=== PATIENT | male | born 1970 | race Caucasian/White ===

== ENCOUNTER 2021-09-08 10:31 | Emergency (ER) | payer BC, SELFPAY ==
[2021-09-08 11:36] VITALS: BP 116/80; PULSE 85; RESP 19; TEMP 36.6; O2SAT 98; BMI 25.8
[2021-09-08 12:30] LABS: Basophils Percent Auto 0.3 % (0-2); Eosinophils Absolute Auto 0.1 X10*3/uL (0.0-0.4); Eosinophils Percent Auto 1.4 % (0-4); Hematocrit 43.8 % (42.0-52.0); Hemoglobin 14.8 g/dl (14.0-18.0); Imm Gran Abs Auto 0.02 X10*3/uL (0.00-0.03); Imm Gran Pct Auto 0.3 % (0.0-0.4); Lymphocytes Absolute Auto 2.5 X10*3/uL (1.2-4.9); Lymphocytes Percent Auto 31.9 % (20-40); MANUAL DIFF FLAG NO; Mean Corpuscular HGB Conc 33.8 g/dl (31.0-36.0); Mean Corpuscular Hemoglobin 29.4 pg (27.0-33.0); Mean Corpuscular Volume 86.9 fL (80.0-98.0); Mean Platelet Volume 10.5 fL (9.4-12.4); Monocytes Absolute Auto 0.6 X10*3/uL (0.1-1.2); Monocytes Percent Auto 7.6 % (2-11); Neutrophils Absolute Auto 4.6 x10*3/uL (2.0-8.3); Neutrophils Percent Auto 58.5 % (45-73); Platelet Count 219 X10*3/uL (160-400); Red Blood Count 5.04 X10*6/uL (4.60-5.80); Red Cell Distribution Width 12.2 % (11.0-16.0); White Blood Count 7.8 X10*3/uL (4.8-10.8)
[2021-09-08 12:31] LABS: Appearance Urine CLEAR; Color Urine YELLOW; Glucose Urine UA NEG (NEG); Leukocyte Esterase Urine NEG (NEG); Nitrite Urine NEG (NEG); Specific Gravity - Urine 1.025 (1.005-1.025); UACC Culture Trigger NO; Urine Blood 1+ (NEG); Urine Ketones NEG (NEG); Urine Protein NEG (NEG-TRACE)
[2021-09-08 12:47] LABS: Anion Gap 14 (12-20); Blood Urea Nitrogen 11 mg/dL (9-16); Calcium 9.9 mg/dL (8.4-10.2); Carbon Dioxide 29 mmol/L (22-29); Chloride 103 mmol/L (96-108); Creatinine Clr Calc Pharmacy 90.4; Estimated Glomerular Filt Rate > 60; Glucose Random 101 mg/dL (60-115); Potassium 4.7 mmol/L (3.3-5.1); Sodium 141 mmol/L (135-145)
[2021-09-08 12:52] LABS: WBC Urine 0 /HPF (0-4)
[2021-09-08 12:53] LABS: Mucus Urine 2+ /LPF
== END 2021-09-08 21:02 | disposition left against medical advice (07) ==
LOC: HO.ED 20:43
PROVIDERS: Emergency Provider Emergency Medicine; PCP Internal Medicine
DX: R10.9 Unspecified abdominal pain (principal)
CPT/HCPCS: 36415; 80048; 81001; 85025; 99283

== ENCOUNTER 2021-09-16 14:34 | Day surgery (SDC) | payer OTHER, SELFPAY ==
--- NOTE | ~2021-09-16 | CT_ITS ---
EXAMINATION: CT ABDOMEN AND PELVIS WITH CONTRAST CLINICAL INFORMATION: Right inguinal, quadrant pain COMPARISON: None TECHNIQUE: Multidetector volumetric images were obtained from the superior aspect of the liver through the pubic symphysis following administration 85 mL of Omnipaque 350 intravenous contrast. Sagittal and coronal reformatted images were obtained on the technologist's workstation. Oral contrast: No This CT examination was performed using dose optimization techniques as appropriate, variously including the following: *Automated exposure control *Adjustment of mA and/or kV according to patient size (this includes techniques or standardized protocols for targeted exams where dose is matched to indication/reason for exam; i.e. extremities or head) *Use of iterative reconstruction technique DLP: 555 mGy-cm FINDINGS: Suboptimal assessment of some regions due to motion artifact. LUNG BASES: The visualized lung bases are unremarkable. LIVER, GALLBLADDER, AND BILIARY TREE: The liver is normal in size, shape, and attenuation. No focal hepatic lesion or biliary ductal dilatation is present. Gallbladder appears somewhat contracted. PANCREAS: Unremarkable. SPLEEN: Unremarkable. ADRENAL GLANDS: Unremarkable. KIDNEYS AND URETERS: Bilateral nephrograms are symmetric. No hydronephrosis or obstructing calculus identified. BLADDER: Unremarkable. GASTROINTESTINAL TRACT: No evidence of bowel obstruction. There is a thick-walled, dilated appearance of the appendix measuring up to 1.5 cm in diameter and prominent surrounding inflammation, most consistent with acute appendicitis. Pelvic free fluid is seen without focal collection. No free air identified. ABDOMINAL WALL: No significant hernia is appreciated. LYMPH NODES: Normal. VASCULAR: Unremarkable. PELVIC VISCERA: Unremarkable. OSSEOUS STRUCTURES: Unremarkable. CT/CT abdomen pelvis w con IMPRESSION: Findings consistent with acute appendicitis as described above. Pelvic free fluid, which may be reactive, without focal collection. Fleischner guidelines were followed.
[2021-09-16 17:34] VITALS: BP 138/83; PULSE 79; RESP 18; TEMP 36.8; O2SAT 98; BMI 26.1
[2021-09-16 20:18] LABS: MANUAL DIFF FLAG NO
[2021-09-16 20:19] LABS: Basophils Percent Auto 0.7 % (0-2); Eosinophils Absolute Auto 0.3 X10*3/uL (0.0-0.4); Eosinophils Percent Auto 4.5 % (0-4); Hematocrit 43.3 % (42.0-52.0); Hemoglobin 14.5 g/dl (14.0-18.0); Imm Gran Abs Auto 0.02 X10*3/uL (0.00-0.03); Imm Gran Pct Auto 0.3 % (0.0-0.4); Lymphocytes Absolute Auto 2.7 X10*3/uL (1.2-4.9); Lymphocytes Percent Auto 45.5 % (20-40); Mean Corpuscular HGB Conc 33.5 g/dl (31.0-36.0); Mean Corpuscular Hemoglobin 29.1 pg (27.0-33.0); Mean Corpuscular Volume 86.9 fL (80.0-98.0); Mean Platelet Volume 10.2 fL (9.4-12.4); Monocytes Absolute Auto 0.6 X10*3/uL (0.1-1.2); Monocytes Percent Auto 10.3 % (2-11); Neutrophils Absolute Auto 2.3 x10*3/uL (2.0-8.3); Neutrophils Percent Auto 38.7 % (45-73); Platelet Count 273 X10*3/uL (160-400); Red Blood Count 4.98 X10*6/uL (4.60-5.80); Red Cell Distribution Width 12.1 % (11.0-16.0); White Blood Count 5.8 X10*3/uL (4.8-10.8)
[2021-09-16 20:37] LABS: Alanine Aminotransferase 21 U/L (0-40); Albumin Level 4.5 g/dL (3.5-5.0); Alkaline Phosphatase 64 U/L (39-117); Anion Gap 11 (12-20); Aspartate Amino Transferase 16 U/L (5-37); Bilirubin Total 0.6 mg/dL (0.0-1.0); Blood Urea Nitrogen 13 mg/dL (9-16); Calcium 10.5 mg/dL (8.4-10.2); Carbon Dioxide 33 mmol/L (22-29); Chloride 101 mmol/L (96-108); Creatinine Clr Calc Pharmacy 90.2; Estimated Glomerular Filt Rate > 60; Glucose Random 98 mg/dL (60-115); Potassium 5.2 mmol/L (3.3-5.1); Sodium 140 mmol/L (135-145); Total Protein 8.1 g/dL (6.5-8.0)
[2021-09-17] VITALS (15 sets, daily range): BP systolic 102–128; BP diastolic 51–88; PULSE 67–96; RESP 12–16; TEMP 36.2–37.2; O2SAT 96–100
--- NOTE | 2021-09-17 02:26 | ED.ABDPAIN ---
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 Patient states that he tried some home remedies provided by his and states that pain did improve somewhat, but then Thursday and Thursday began worsening. Patient denies any intra-abdominal surgeries, kidney stones. Related Data Allergies Allergy/AdvReac Type Severity Reaction Status Date / Time No Known Allergies Allergy Verified 09/16/21 17:34 Review of Systems Review of Systems Pertinent positives and negatives as stated in HPI 10 point review of systems otherwise negative. Physical Exam Vital Signs: Vital Signs: Last Vital Signs Temp 98.3 F 09/16/21 17:34 Pulse 72 09/17/21 03:31 Resp 16 09/17/21 03:31 BP 116/73 09/17/21 03:31 Pulse Ox 98 09/17/21 03:31 BMI result Body Mass Index 26.1 VITAL SIGNS: Reviewed. GENERAL: Well developed, well nourished, in no acute distress. HEAD: Normocephalic/atraumatic EYES: PERRLA, EOMI LUNGS: Normal breath sounds. No adventitious sounds or accessory muscle use. SpO2<98> CARDIOVASCULAR: Regular rate and rhythm without noted murmurs ABDOMEN: Soft, tenderness over right inguinal area with palpated soft mass that is very tender but inconsistent with adenopathy and suspect hernia, non-distended with bowel sounds. NEUROLOGIC: Alert and oriented x 4. Strength and sensation to light touch were grossly intact x 4. Course Course Course Narrative: 50-year-old male with history and clinical presentation suspicious for inguinal hernia without obstructive symptoms and on review of all investigations otherwise negative for acute findings. A review of CT scan findings consistent with acute appendicitis despite the absence of an elevated white count. MDM - Abdominal Pain Lab Data Result diagrams: 09/16/21 20:15 09/16/21 20:15 Labs: Lab Results 12/27/21 12/27/21 12/28/21 Range/Units 20:15 20:15 02:27 WBC 5.8 (4.8-10.8) X10*3/uL RBC 4.98 (4.60-5.80) X10*6/uL Hgb 14.5 (14.0-18.0) g/dl Hct 43.3 (42.0-52.0) % MCV 86.9 (80.0-98.0) fL MCH 29.1 (27.0-33.0) pg MCHC 33.5 (31.0-36.0) g/dl RDW 12.1 (11.0-16.0) % Plt Count 273 (160-400) X10*3/uL MPV 10.2 (9.4-12.4) fL Immature Gran % (Auto) 0.3 (0.0-0.4) % Neut % (Auto) 38.7 L (45-73) % Lymph % (Auto) 45.5 H (20-40) % [place] % (Auto) 10.3 (2-11) % Eos % (Auto) 4.5 H (0-4) % Baso % (Auto) 0.7 (0-2) % Lymph # (Auto) 2.7 (1.2-4.9) X10*3/uL [place] # (Auto) 0.6 (0.1-1.2) X10*3/uL Eos # (Auto) 0.3 (0.0-0.4) X10*3/uL Baso # (Auto) 0.0 (0.0-0.2) X10*3/uL Abs Immat Gran (auto) 0.02 (0.00-0.03) X10*3/uL Absolute Neuts (auto) 2.3 (2.0-8.3) x10*3/uL Absolute Nucleated RBC 0.000 (0.0-0.012) X10*3/uL Nucleated RBC % (auto) 0.0 (0.0-0.2) /100WBC Sodium 140 (135-145) mmol/L Potassium 5.2 H (3.3-5.1) mmol/L Chloride 101 (96-108) mmol/L Carbon Dioxide 33 H (22-29) mmol/L Anion Gap 11 L (12-20) BUN 13 (9-16) mg/dL Creatinine 0.99 (0.5-1.4) mg/dL Estim Creat Clear Calc 90.2 Estimated GFR > 60 Random Glucose 98 (60-115) mg/dL Calcium 10.5 H D (8.4-10.2) mg/dL Total Bilirubin 0.6 (0.0-1.0) mg/dL AST 16 (5-37) U/L ALT 21 (0-40) U/L Alkaline Phosphatase 64 (39-117) U/L Total Protein 8.1 H (6.5-8.0) g/dL Albumin 4.5 (3.5-5.0) g/dL COVID-19 (ADWOA) Negative (Negative) COVID-19 Clin Com See Note Discharge Plan Discharge Clinical Impression: Acute appendicitis Patient Disposition: Admitted As Inpatient [facility]LY [facility] Past Medical History Source: nursing notes reviewed Medical History No pertinent past medical history Social History Social History Patient Tobacco Use Status: Never used Tobacco Use of substances other than those prescribed or required for medical reasons: No Advance Directives: No Advance Directives Information Provided: Yes
[2021-09-17 02:49] LABS: COVID-19 Test Negative (Negative)
[2021-09-17] MEDS: iohexoL 350 MG/ML 100 ML INFUS..BTL 85 ML IV (04:23)
--- NOTE | 2021-09-17 05:28 | PM.HPGS ---
History of Present Illness History of Present Illness Date of Service: 09/17/21 Chief complaint: Acute Appendicitis Narrative: Kartihk Monroe is a 50 year old male presenting with an 11 day history of abdominal pain in the right lower quadrant radiating down the pelvic area. He initially treated this with a home remedy which seems to help with the pain returned after stopping therapy. Pain remains in the right lower quadrant and is not associated with fever, chills, nausea, vomiting, diarrhea, bloody stools. He subsequently presented to the emergency department when the pain worsened. Pain was initially felt to be either due to renal colic or an inguinal hernia. Laboratories were normal however and a CT abdomen and pelvis revealed a thickened appendix with peritoneal fluid suggestive of acute appendicitis. Patient is admitted for management of his acute appendicitis. Review of Systems Constitutional: Constitutional: Denies chills, Denies fever(s), Denies headache(s) and Denies poor appetite ENT: Denies dizziness and Denies headache(s) Cardiovascular: Cardiovascular: Denies chest pain, Denies rapid heart rate, Denies palpitations and Denies slow heart rate Respiratory: Respiratory: Denies chest congestion, Denies cough, Denies pain on inspiration and Denies wheezing Gastrointestinal: Gastrointestinal: Reports abdominal pain, Denies bloating, Denies change in stool character, Denies constipation, Denies diarrhea, Denies nausea, Denies vomiting and Denies hematemesis Genitourinary: Genitourinary: Denies difficulty urinating Musculoskeletal: Musculoskeletal: Denies back pain, Denies arthralgias, Denies joint swelling and Denies numbness Integumentary/Breasts: Skin/Breast: Denies change in pigmentation, Denies erythema and Denies rash Neurologic: Denies dizziness, Denies headache(s) and Denies numbness Psychiatric: Psychiatric: Denies anxiety and Denies depression Endocrine: Endocrine: Denies palpitations Hematologic/Lymphatic: Hematologic/Lymphatic: Denies easy bleeding, Denies easy bruising and Denies lymphadenopathy Allergic/Immunologic: Allergic/Immunologic: Denies wheezing PMFSH Past Medical History Medical History No pertinent past medical history Social History Social History Patient Tobacco Use Status: Never used Tobacco Use of substances other than those prescribed or required for medical reasons: No Advance Directives: No Advance Directives Information Provided: Yes Meds Allergies Allergy/AdvReac Type Severity Reaction Status Date / Time No Known Allergies Allergy Verified 09/16/21 17:34 Active Medications: Current Medications Piperacillin Sod/Tazobactam (Sod 3.375 gm/ Sodium Chloride) 50 mls @ 100 mls/hr IV ONCE ONE Stop: 09/17/21 05:50 Physical Exam Vital Signs: Vital Signs: Last Vital Signs Temp 98.3 F 09/16/21 17:34 Pulse 72 09/17/21 03:31 Resp 16 09/17/21 03:31 BP 116/73 09/17/21 03:31 Pulse Ox 98 09/17/21 03:31 BMI result Body Mass Index 26.1 Const: General: cooperative and no acute distress Nutritional Appearance: well nourished Orientation/consciousness: patient oriented x3 Limitations: no limitations HENMT: Head: Yes normocephalic and Yes atraumatic Ears: hearing grossly normal bilaterally Resp: Effort & Inspection: normal respiratory effort Auscultation: clear to auscultation bilaterally Cardio: Jugular venous distension: no JVD Rate: regular rate Rhythm: regular rhythm Heart sounds: S1 normal heart sound present and S2 normal heart sound present GI: Inspection: Yes normal to inspection Palpation (GI): Soft to palpation, Tenderness to palpation present (GI) in the RLQ and at McBurney's point; Negative for with no rebound tenderness, no guarding and not rigid Percussion: Yes normal to percussion Auscultation: normal bowel sounds Rectal Exam - Male: Yes deferred Skin: General skin exam: no rashes or lesions noted Neuro: General: patient oriented x3 Extrem: General: Yes no clubbing, cyanosis or edema Results Results Labs: Short CBC 09/16/21 Range/Units 20:15 WBC 5.8 (4.8-10.8) X10*3/uL Hgb 14.5 (14.0-18.0) g/dl Hct 43.3 (42.0-52.0) % Plt Count 273 (160-400) X10*3/uL BMP 09/16/21 20:15 Sodium 140 Potassium 5.2 H Chloride 101 Carbon Dioxide 33 H BUN 13 Creatinine 0.99 Calcium 10.5 H D Liver Function 09/16/21 Range/Units 20:15 Total Bilirubin 0.6 (0.0-1.0) mg/dL AST 16 (5-37) U/L ALT 21 (0-40) U/L Alkaline Phosphatase 64 (39-117) U/L Albumin 4.5 (3.5-5.0) g/dL Abdomen CT scan report/results: image reviewed CT scan - pelvis: image reviewed Assessment and Plan (1) Acute appendicitis: Status: Acute 50-year-old male patient presenting with complaints of abdominal pain in the right lower quadrant of 11 days onset. The pain is localized to the right lower quadrant with radiation to the pelvis. Laboratories revealed a normal WBC however CT abdomen and pelvis confirmed a thickened, dilated appendix consistent with acute appendicitis. I reviewed the procedure, risks, and alternatives of a laparoscopic or possible open appendectomy and he consents with the procedure. He will be scheduled for the OR for today. Quality Stroke Does the patient have a stroke diagnosis?: No VTE Prior VTE?: No VTE Risk Level:: Surgical - moderate VTE Device Contraindication: N/A - Device Ordered VTE Drug Contraindication: Treatment Not Indicated Procedures Date of Service Date of Service: 09/17/21
[2021-09-17] MEDS: Piperacillin Sodium/Tazobactam 3.375 GM in 0.9 % Sodium Chloride 50 ML IV (05:37)
[2021-09-17] MEDS: Ketorolac Tromethamine 30 MG/ML VIAL 15 MG IVPUSH (05:37)
[2021-09-17] MEDS: Dextrose 5 % and Lactated Ring 1,000 ML 125 ML IVCONT ×3 (06:03→20:08)
--- NOTE | 2021-09-17 06:08 | PC.NURSE ---
pt medicated per mar, no n/v. pt resting in bed with no sign of distress. Call xiong with in reach.
--- NOTE | 2021-09-17 08:53 | PC.NURSE ---
report given to [facility] MADELEINE Hernandez. patient will be picked up at 1000 in ED by surgery staff.
--- NOTE | 2021-09-17 10:11 | P.CONAN_ITS ---
[facility], [facility] Active Problems Active Problems: All Active Problems (Updated 09/17/21 @ 05:19 by Serene lagos MD) Acute appendicitis (Acute) Past Medical History Medical History No pertinent past medical history Family History Family history of problems with anesthesia: No Surgical History History of Problems with Anesthesia: No Social History Social History Patient Tobacco Use Status: Never used Tobacco Use of substances other than those prescribed or required for medical reasons: No Advance Directives: No Advance Directives Information Provided: Yes service: No Current occupational status: employed Meds Allergies Allergy/AdvReac Type Severity Reaction Status Date / Time No Known Allergies Allergy Verified 09/16/21 17:34 Active Medications: Current Medications Hydromorphone HCl (Hydromorphone Hcl 0.5 Mg/0.5 Ml Syringe) 0.5 mg IVPUSH Q2H PRN; Protocol PRN Reason: abdominal pain Dextrose/Lactated Ringer's (D5lr) 1,000 mls @ 125 mls/hr IVCONT .Q8H JOEL Last Admin: 09/17/21 06:03 Dose: 125 mls/hr Documented by: Piperacillin Sod/Tazobactam (Sod 3.375 gm/ Sodium Chloride) 50 mls @ 100 mls/hr IV Q6H JOEL Exam Exam Date and Time: September 17, 2021 1011 Height,Weight and Vital Signs: Height 5 ft 9 in Weight 80.286 kg Last Vital Signs Temp 98.0 F 09/17/21 07:03 Pulse 67 09/17/21 07:03 Resp 16 09/17/21 07:03 BP 111/69 09/17/21 07:03 Pulse Ox 99 09/17/21 07:03 Pertinent Lab Results Pertinent Lab Results: Laboratory Tests 09/16/21 09/16/21 09/17/21 20:15 20:15 02:27 WBC 5.8 RBC 4.98 Hgb 14.5 Hct 43.3 MCV 86.9 MCH 29.1 MCHC 33.5 RDW 12.1 Plt Count 273 MPV 10.2 Immature Gran % (Auto) 0.3 Neut % (Auto) 38.7 L Lymph % (Auto) 45.5 H [place] % (Auto) 10.3 Eos % (Auto) 4.5 H Baso % (Auto) 0.7 Lymph # (Auto) 2.7 [place] # (Auto) 0.6 Eos # (Auto) 0.3 Baso # (Auto) 0.0 Abs Immat Gran (auto) 0.02 Absolute Neuts (auto) 2.3 Absolute Nucleated RBC 0.000 Nucleated RBC % (auto) 0.0 Sodium 140 Potassium 5.2 H Chloride 101 Carbon Dioxide 33 H Anion Gap 11 L BUN 13 Creatinine 0.99 Estim Creat Clear Calc 90.2 Estimated GFR > 60 Random Glucose 98 Calcium 10.5 H D Total Bilirubin 0.6 AST 16 ALT 21 Alkaline Phosphatase 64 Total Protein 8.1 H Albumin 4.5 COVID-19 (ADWOA) Negative COVID-19 Clin Com See Note Airway Mallampati Class: II TM Dist: >3cm Neck ROM: Full Assessment and Plan Assessment Anesthesia Assessment: Anesthesia Plan Discussed and Chart Reviewed Final Anesthetic Review Family History of Problems with Anesthesia: No History of Problems with Anesthesia: No NPO: Yes ASA Class: I and Emergency Final Preanesthetic Review: Meds/Allgs Chart Reviewed, Consent Obtained/Reviewed and Anes Risks/Benef Reviewed Patient Risk: Intermediate Procedure Risk: Intermediate Anesthetic Plan Anesthetic Plan: GA Disposition: Standard PACU
--- NOTE | 2021-09-17 10:14 | MHC.CM.PN ---
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 Patient lives with his , ambulates independently and had no services prior to coming to the hospital. No services anticipated to be needed because patient is not homebound. PCP verified. Patient received 2 Moderna vaccines. HCP completed, signed and witnessed. Original given to patient. Copy placed in chart. Obs notice explained and signed. Patient has transport home when medically stable. Continue to monitor for d/c needs.
[2021-09-17] MEDS: 0.9 % Sodium Chloride 1,000 ML 100 ML IVCONT (10:51)
--- NOTE | 2021-09-17 12:35 | P.OP_ITS ---
Operative Note Operative Note Date of Service: 09/17/21 Narrative: Preoperative diagnosis: Acute appendicitis Postoperative diagnosis: Same Procedure: Laparoscopic appendectomy Surgeon: Reagan Costello MD Fertilizing Machine Operator:Cheyanne Katz PA-C Anesthesia: General endotracheal Indications for procedure: 50-year-old male patient presenting with complaints of abdominal pain in the right lower quadrant of approximately 12 days duration. The pain remained in a right lower quadrant location for the entire time. Pain initially improved within subsequently worsened over the weekend. Upon presentation to the emergency department he was noted to have a mass in the right lower quadrant possibly a hernia. CT of the abdomen and pelvis however revealed a large thickened appendix suggestive of acute appendicitis. Operative findings: Markedly inflamed appendix with overlying omentum densely adherent to the appendix and the abdominal wall lower quadrant. The wall the appendix was markedly thickened but no evidence of perforation could be identified. A small amount of turbid fluid was noted in the pelvis. Specimen: Appendix Estimated blood loss: 20 mL Complications: known Procedure details: Patient was brought to the OR and placed in a supine position. After administering general anesthesia the patient's abdomen was prepped with ChloraPrep and draped in a sterile fashion. A surgical time-out was called and consent confirmed. Patient received preoperative antibiotics and Venodyne boots were in place. Local anesthesia consisting of 0.75% Sensorcaine with epinephrine was infiltrated in periumbilical region. A 5 mm incision was made below the umbilicus and carried down through subcutaneous tissue. A Veress needle was then inserted while elevating abdominal cavity with towel clips. After a positive drop test the abdomen was insufflated to a pressure of 15 mm of mercury. The Veress needle was removed and a 5 mm trocar inserted. The camera was then inserted in the abdomen explored. A 2nd 5 mm trocars placed in the lower midline. A 12 mm trocar was then placed in the left lower quadrant. The patient was then placed in a Trendelenburg position and rotated to the left. The appendix was identified in the right lower quadrant with dense adhesions to the omentum as noted above. The LigaSure was used to divide the omentum and mobilized the appendix along the right peritoneal reflection. Dissection was continued down towards the base of the appendix and the mesentery was divided using LigaSure. The appendiceal artery was cauterized and divided using the LigaSure. Dissection was continued down to the base of the cecum. An Endo-CARLITOS stapler with a purple reload was then used to divide the appendix at the base with the cecum. The appendix was then placed in Endo-Catch bag and brought out through the left lower quadrant incision. The abdomen was then irrigated with saline solution and suctioned dry. Wounds were checked for hemostasis. CO2 was then evacuated from the abdominal cavity and all trocars removed. Fascia was closed in the left lower quadrant incision using a [id number] 0 Polysorb suture. Skin was closed at all incisions using a subcuticular 4-0 Polysorb suture. Steri-Strips 2 x 2 gauze and Tegaderm were then applied. The patient tolerated the procedure well. Sponge, instrument, needle counts reported as correct. The patient was transferred to PACU in stable condition.
[2021-09-17] MEDS: oxyCODONE HCl Immed Release 5 MG TABLET PO ×2 (13:49→20:14)
[2021-09-18] MEDS: Dextrose 5 % and Lactated Ring 1,000 ML 125 ML IVCONT (04:27)
[2021-09-18] MEDS: oxyCODONE HCl Immed Release 5 MG TABLET PO ×2 (07:30→12:01)
[2021-09-18 07:35] VITALS: BP 123/60; PULSE 91; RESP 18; TEMP 36.7; O2SAT 97
--- NOTE | 2021-09-18 08:11 | P.PNGS_ITS ---
Subjective Subjective Date of Service: 09/18/21 Interval history: Patient reports feeling much improved this morning with increased abdominal pain. He was able to eat a small amount slightly and is ambulating independently. Feels ready for discharge home. Physical Exam Vital Signs: Vital Signs: Last Vital Signs Temp 98.1 F 09/18/21 07:35 Pulse 91 09/18/21 07:35 Resp 18 09/18/21 07:35 BP 123/60 09/18/21 07:35 Pulse Ox 97 09/18/21 07:35 BMI result Body Mass Index 26.1 Const: General: healthy appearing and comfortable Nutritional Appearance: well nourished Orientation/consciousness: patient oriented x3 Limitations: no limitations Resp: Effort & Inspection: normal respiratory effort, no audible wheezes and no cough GI: Other: Soft, nondistended, incisions clean, dry, and intact. Neuro: General: patient oriented x3 Extrem: Other: No edema Objective Data Active Medications Hydromorphone HCl (Hydromorphone Hcl 0.5 Mg/0.5 Ml Syringe) 0.5 mg IVPUSH Q2H PRN; Protocol PRN Reason: abdominal pain Dextrose/Lactated Ringer's (D5lr) 1,000 mls @ 125 mls/hr IVCONT .Q8H JOEL Last Admin: 09/18/21 04:27 Dose: 125 mls/hr Documented by: KAMINI Oxycodone HCl (Oxycodone Hcl Immed Release 5 Mg Tablet) 5 mg PO Q4H PRN PRN Reason: Pain, Moderate (Pain Scale 4-6 Last Admin: 09/18/21 07:30 Dose: 5 mg Documented by: YIFAN Labs CBC & Chem 7: 09/16/21 20:15 09/16/21 20:15 Procedures Date of Service Date of Service: 09/18/21 Progress Note: A&P Assessment and plan (1) Acute appendicitis: Status: Acute Assessment and Plan: 50-year-old male patient status post laparoscopic appendectomy for acute appe ndicitis. He has no pod 1 and tolerated the procedure well. His wounds are clean and intact he is tolerating a regular diet and is ambulating independently. He is ready for discharge to home. I recommended he return to the office in approximately 1 week. He should avoid lifting greater 10 lb for the next 2 weeks. He should not return to work for least 3 weeks. Avastin to call the office for increased pain, fever, chills, nausea, vomiting, or other concerns. Fall Risk Details Current Medications: Current Medications Hydromorphone HCl (Hydromorphone Hcl 0.5 Mg/0.5 Ml Syringe) 0.5 mg IVPUSH Q2H PRN; Protocol PRN Reason: abdominal pain Dextrose/Lactated Ringer's (D5lr) 1,000 mls @ 125 mls/hr IVCONT .Q8H JOEL Last Admin: 09/18/21 04:27 Dose: 125 mls/hr Documented by: Oxycodone HCl (Oxycodone Hcl Immed Release 5 Mg Tablet) 5 mg PO Q4H PRN PRN Reason: Pain, Moderate (Pain Scale 4-6 Last Admin: 09/18/21 07:30 Dose: 5 mg Documented by: Time Spent With Patient Time: Total time spent is greater than 50% in coordination of care (as documented) at patient's floor/unit and/or counseling patient: Time with patient: 15 - 24 minutes Quality Stroke Does the patient have a stroke diagnosis?: No VTE Prior VTE?: No VTE Risk Level:: Surgical - moderate VTE Device Contraindication: N/A - Device Ordered VTE Drug Contraindication: Treatment Not Indicated
--- NOTE | 2021-09-18 08:14 | P.DS_ITS ---
DS: Providers Provider Date of Service: 09/18/21 Date of admission: 09/09/2021 Date of discharge: 09/18/21 Primary care physician: Telma Swift MD Admitting clinician: Reagan Costello Discharging clinician: Reagan Costello DS: Diagnosis Discharge Diagnosis (1) Acute appendicitis: Status: Acute DS: Summary Hospital Course Hospital Course: 50-year-old male patient presents with complaints of a day prolonged history of abdominal pain right lower quadrant starting initially 11 days prior to admission. Initially presented to the emergency department because of the more weight decided to return home after waiting approximately 12 hours. He subsequently returned after increased abdominal pain developed over the weekend. Upon presentation to the emergency department he was noted to have tender in the right lower quadrant with a palpable mass at the location. Laboratories revealed normal WBC however CT of the abdomen and pelvis confirmed a large thickened appendix with intraperitoneal fluid suggestive of acute appendicitis. Surgical consultation was requested. The patient was noted to be tender in the right lower quadrant with palpable mass with localized rebound. Decision was made to proceed to laparoscopic appendectomy. Operative findings were consistent with acute appendicitis with dense adhesions to the omentum around the appendix and to the anterior abdominal wall. Extensive dissection was required to free the omentum from the appendix. Findings were consistent with acute appendicitis. There was no evidence of perforation. A small amount of turbid fluid was identified in pelvis. The patient tolerated the procedure well and was started on a regular diet postoperatively. Tolerated this well. By pod 1 he was able to ambulate independently tolerating a regular diet. He is comfortable on oral pain medication. Patient is being discharged to home. He will follow up in the office in approximately 1 week. Recommended no lifting greater than 10 lb for 2 weeks. He should avoid heavy strenuous activity for approximately 3 weeks prior to returning to work. He may resume regular diet. I have asked him to call the office for a follow-up appointment. He should also call for fever, chills, nausea, vomiting, increased abdominal pain, or other concerns regarding the surgical site. Expressed understanding and agrees with the plan. Time spent discussing smoking cessation with patient: 3 to 10 minutes Status at Discharge Functional status at discharge: independent ambulation Overall status at discharge: patient is progressing back to baseline Time Spent with Patient Time attestation: Total time spent providing and/or coordinating discharge services: Discharge coordination time: Less than 30 minutes Quality: Stroke Does the patient have a stroke diagnosis?: No Physical Exam Vital Signs: Vital Signs: Last Vital Signs Temp 98.1 F 09/18/21 07:35 Pulse 91 09/18/21 07:35 Resp 18 09/18/21 07:35 BP 123/60 09/18/21 07:35 Pulse Ox 97 09/18/21 07:35 BMI result Body Mass Index 26.1 Const: General: healthy appearing, comfortable and no acute distress Nutritional Appearance: well nourished Orientation/consciousness: patient oriented x3 Limitations: no limitations Resp: Effort & Inspection: normal respiratory effort GI: Other: Incisions are clean, and intact with intact dressings. Normal postoperative incisional tenderness. Inspection: Yes normal to inspection Palpation (GI): Soft to palpation Skin: General skin exam: no rashes or lesions noted Neuro: General: patient oriented x3 Extrem: General: Yes no clubbing, cyanosis or edema DS: Data Data Completed and Pending Pending studies at discharge: Pending at discharge 09/17/21 12:16 Surgical [PTH] Routine Discharge Plan Discharge Patient Disposition: Home, Self-Care Referrals: Telma Swift MD [Primary Care Provider] - 1 Week Reagan Costello MD [Physician] - 1 Week Discharge Medications: New oxycodone-acetaminophen [Endocet] 5-325 mg tablet 1 tab PO Q6H PRN (Reason: pain (scale score 7-10)) Qty: 15 RF: 0 Discharge Orders: Discharge Order (Routine); Ordered 09/18/21 Ordered By: Reagna Costello Stand Alone Forms: Work/School Release Activity Restrictions/Additional Instructions: If the incision area is tender, you may apply an ice pack for short intervals (No more than 20 minutes on, followed by at least 20 minutes off). Do not apply heat. Do not use creams, lotions, or topical antibiotics unless instructed to do so by your surgeon. These can cause infection or allergic reaction. Ok to shower. Remove the plastic dressing in three days following the surgery. You may still shower after removing the plastic dressing. Do not remove the white steri-strips, rather allow them to gradually peal off themself. No lifting more than 10 pounds for the next two weeks. No driving for one week Please call the office [phone] for an appointment. The office is at [address] [place] [address], located just above the Emergency Department (the entrance is to the left of the main ED entrance, look for the glass double doors with the address [address] [place] [address] above the door. Take the elevator to the third floor and check in at the bowling floor desk clerk. Call Your Doctor If: -Your temperature exceeds 101.5? F -You experience excessive pain or swelling -You have an unexpected reaction to medication -You have excessive bleeding -You experience continued vomiting/nausea -Your incision begins to separate -Your incision shows signs of infection such as increased redness, swelling, excessive pain, drainage (light blood or clear fluid is normal) or heat
--- NOTE | 2021-09-18 10:02 | HO.POSTANES ---
Post Anesthesia Evaluation Post Anesthesia Evaluation Vital Signs: Vital Signs Temp Pulse Resp BP Pulse Ox 09/18/21 07:35 98.1 F 91 18 123/60 97 09/17/21 23:48 99 F 96 16 102/51 L 96 Anesthesia: General Endotracheal-GETA Mental Status: Awake Pain Control: Satisfactory Nausea/Vomiting: None Hydration: Adequate Anesthesia-Related Issues: No Anes. Related Issues
== END 2021-09-18 13:00 | disposition home or self-care (01) ==
LOC: HO.ED 09-17 05:19 → HO.EDOVER 09-17 07:45 → HO.SSS 09-17 14:59 → HO.S3 09-17 14:59
PROVIDERS: Emergency Provider Student in an Organized Health Care Education/Training Program; PCP Internal Medicine; Visit Provider Surgery
PROC: 0DTJ4ZZ Resection of Appendix, Percutaneous Endoscopic Approach (ICD-10-PCS; CPT 44970; principal; 2021-09-17 11:00)
DX: K35.80 Unspecified acute appendicitis (principal); Z20.822 Contact with and (suspected) exposure to COVID-19
CPT/HCPCS: 44970; 36415; 74177; 80053; 85025; 87635; 88304; 96365; 96375; 99024; 99285; J1100; J1885; J2250; J2405; J2543; J3010; Q9967

== ENCOUNTER → 2021-10-01 09:19 | Outpatient (BNVA) | payer OTHER, SELFPAY | PROVIDERS: PCP Internal Medicine; Referring Provider Internal Medicine; Visit Provider Surgery ==

== ENCOUNTER 2024-06-30 10:42 | Outpatient (REF) | payer OTHER, SELFPAY ==
[2024-06-30 12:02] LABS: Estimated Average Glucose 126 mg/dL; Hemoglobin A1C 158.4414 umol/L; Total Hemoglobin (HGBA1C) 3764.3323 umol/L
[2024-06-30 12:22] LABS: Alanine Aminotransferase 22 U/L (0-40); Albumin Level 4.8 g/dL (3.5-5.0); Alkaline Phosphatase 54 U/L (39-117); Anion Gap 13 (12-20); Aspartate Amino Transferase 17 U/L (5-37); Bilirubin Total 0.6 mg/dL (0.0-1.0); Blood Urea Nitrogen 14 mg/dL (9-16); Calcium 10.5 mg/dL (8.4-10.2); Carbon Dioxide 30 mmol/L (22-29); Chloride 101 mmol/L (96-108); Cholesterol 214 mg/dL (<200); Estimated Glomerular Filt Rate > 60; Glucose Random 104 mg/dL (60-115); HDL Cholesterol 62 mg/dL (>40); LDL Cholesterol Calculated 112 mg/dL (<100); Potassium 4.7 mmol/L (3.3-5.1); Sodium 139 mmol/L (135-145); Total Protein 8.1 g/dL (6.5-8.0); Triglycerides 200 mg/dL (<150)
[2024-06-30 12:33] LABS: HBS Num1 0.54 mIU/mL (0-7.99); HBc Num1 0.12 S/CO (0.00-0.79); HBsAGNum1 0.43 S/CO (0.00-0.99); Hepatitis A Antibody IgM 0.26 Index (0-0.79); Hepatitis B Core Antibody Nonreactive (Nonreactive); Hepatitis B Surface Antigen Negative (Negative); ~HepC Num1 0.35 S/CO (0.00-0.79); ~Hepatitis A Antibody IgM Nonreactive (Nonreactive); ~Hepatitis B Surface Antibody NONREACTIVE (Nonreactive); ~Hepatitis C Antibody Nonreactive (Nonreactive)
[2024-06-30 12:40] LABS: Vitamin D 25-OH Total 25.1 ng/mL (>30)
[2024-06-30 12:52] LABS: Reflex LDLD? No
[2024-07-03 07:23] LABS: TS Negative Control Passed; TS Panel A 0; TS Panel B 1; TS Positive Control Passed; TSpotTB Negative (Negative)
== END 2024-06-30 10:43 | disposition home or self-care (01) ==
LOC: HO.HHCL 10:42
PROVIDERS: Visit Provider Internal Medicine
DX: Z00.00 Encounter for general adult medical examination without abnormal findings (principal); R03.0 Elevated blood-pressure reading, without diagnosis of hypertension; Z13.1 Encounter for screening for diabetes mellitus
CPT/HCPCS: 36415; 80053; 80061; 82306; 83036; 84443; 86481; 86704; 86706; 86709; 86803; 87340

== ENCOUNTER 2025-07-04 15:04 | Outpatient (REF) | payer OTHER, SELFPAY ==
--- OUTSIDE RECORDS SUMMARY | 2025-07-04 13:45 | XMS_ITS | Encounter Summary ---
Author Organization [employer] Address [address] [facility] [place] [address] Care Team Providers Care Grease Refiner Operator Name Role Phone Telma Swift MD Primary Care Provider + Encounter Details Date Type Department Care Team (Late st Contact Info) Description 07/04/2025 1:45 PM EDT Office Visit [facility] [address], [place] [phone] Missy John MD [address], [place] [phone] Routine general medical examination at a health care facility (Primary Dx); Screening for lipid disorders; Screening for diabetes mellitus; Elevated blood pressure reading Social History Tobacco Use Types Packs/Day Years Used Date Smoking Tobacco: Never Smokeless Tobacco: Never Tobacco Cessation:Counseling Given: Not Answered Alcohol Use Standard Drinks/Week Comments Yes 0 (1 standard drink = 0.6 oz pur e alcohol) oca Depression Answer Date Recorded Patient Health Questionnaire-9 Score 0 07/04/2025 Patient Health Questionnaire-9 Score 0 07/04/2025 Last PHQ-9: Questionnaire Data Not on file 1 Housing Stability Answer Date Recorded What is your housing situation today? I have housing today, but I am worried about losing housing in the future 07/04/[address] you li ve. Do you have problems with any of the following? I am not sure 07/04/2025 Food Insecurity Answer Date Recorded Within the past 12 months, y ou worried that your food would run out before you got money to buy more: Never True 07/04/2025 Within the past 12 months,th e food you bought just didn't last and you didn't have enough money to get more: Never True Transportation Answer Date Recorded In the past 12 months, has l ack of transportation kept you from medical appts, meetings, work or from getting things needed for daily living? I am not sure 07/04/2025 Utilities Answer Date Recorded In the past 12 months, has t he electric, gas, oil or water company threatened to shut off services in your home? No 07/04/2025 Depression Answer Date Recorded Patient Health Questionnaire-2 Score 0 07/04/2025 Internet Access Answer Date Recorded Internet Access Q1 Yes 07/04/2025 Internet Access Q2 Not on file 07/04/2025 Sex and Gender Information Value Date Recorded Sex Assigned at Male 07/21/2022 10:31 AM EDT Legal Sex Male 10:31 AM EDT Gender Identity Male 07/21/2022 10:31 AM EDT Sexual Orientation Choose not to disclose 2021 10:31 AM EDT documented as of this encounter Last Filed Vital Signs Vital Sign Reading Time Taken Comments Blood Pressure 138/88 07/04/2025 2:19 PM EDT Pulse 83 07/04/2025 2:19 PM EDT Temperature 36.1 C (96.9 F) 07/04/2025 2:19 PM EDT Respiratory Rate 20 07/04/2025 2:19 PM EDT Oxygen Saturation 99% 07/04/2025 2:19 PM EDT Inhaled Oxygen Concentration - - Weight 83.3 kg (183 lb 9.6 oz) 07/04/2025 2:19 P M EDT Height 175.3 cm (5' 9 ) 07/04/2025 2:19 PM EDT Body Mass Index 27.11 07/04/2025 2:19 PM EDT documented in this encounter Functional Status * Over the past 2 weeks, how often have you been bothered by any of the following problems? Question Answer Date of Assessment Author Patient Health Questionnaire -2 Score 0 07/04/2025 1:58 PM EDT Taylor Bush MA * Little interest or pleasure in doing things Answer Date of Assessment Author Not at all 07/04/2025 1:58 PM EDT Jose Rafael Bush MA * Feeling down, depressed, or hopeless Answer Date of Assessment Author Not at all 07/04/2025 1:58 PM EDT Jose Rafael Bush MA * Trouble falling or staying asleep, or sleeping too much Answer Date of Assessment Author Not at all 07/04/2025 1:58 PM PAOLOT Jose Rafael Bush MA * Feeling tired or having little energy Answer Date of Assessment Author Not at all 07/04/2025 1:58 PM PAOLOT Jose Rafael Bush MA * Poor appetite or overeating Answer Date of Assessment Author Not at all 07/04/2025 1:58 PM EDT Jose Rafael Bush MA * Feeling bad about yourself - or that you are a failure or have let yourself or your family down Answer Date of Assessment Author Not at all 07/04/2025 1:58 PM PAOLOT Jose Rafael Bush MA * Trouble concentrating on things, such as reading the newspaper or watching television Answer Date of Assessment Author Not at all 07/04/2025 1:58 PM Jose Rafael Peralta MA * Moving or speaking so slowly that other people could have noticed? Or the opposite - being so fidgety or restless that you have been moving around a lot more than usual. Answer Date of Assessment Author Not at all 07/04/2025 1:58 PM Jose Rafael Peralta MA * Thoughts that you would be better off or hurting yourself in some way Answer Date of Assessment Author Not at all 07/04/2025 1:58 PM Jose Rafael Peralta MA * Patient Health Questionnaire-9 Score Answer Date of Assessment Author 0 07/04/2025 1:58 PM Jose Rafael Peralta MA * Over the last 2 weeks, how often have you been bothered by any of the following problems? Question Answer Date of Assessment Author Feeling nervous, anxious, or on edge 0 07/04/2025 1:59 PM Taylor Peralta MA Not being able to stop or co ntrol worrying 0 07/04/2025 1:59 PM Taylor Peralta MA Worrying too much about diff erent things 0 07/04/2025 1:59 PM EDT Taylor Bush MA Trouble relaxing 0 07/04/2025 1:59 PM EDT Taylor Hayden MA Being so restless that it is hard to sit still 0 07/04/2025 1:59 PM EDT Taylor Bush MA Becoming easily annoyed or irritable 0 07/04/2025 1:59 PM EDT Taylor Bush MA Feeling afraid as if somethi ng awful might happen 0 07/04/2025 1:59 PM EDT Taylor Bush MA PIA-7 Total Score 0 07/04/2025 1:59 PM EDT Taylor Bush MA documented as of this encounter Plan of Treatment Not on file documented as of this encounter Procedures Procedure Name Priority Date/Time Associated Diagnosis Comments LIPID PANEL WITH REFLEX TO DIRECT LDL Routine 07/04/2025 3:11 PM EDT Screening for lipid disorders HEMOGLOBIN A1C Routine 07/04/2025 3:11 PM EDT Screening for diabetes mellitus BASIC METABOLIC PANEL Routine 07/04/2025 3:11 PM EDT Elevated blood pressure reading documented in this encounter Results * (ABNORMAL) Basic Metabolic Panel (07/04/2025 3:11 PM EDT) Sodium 143 135 - 145 mmol/L [facility] Potassium 4.1 3.3 - 5.1 mmol/L [facility] Chloride 104 96 - 108 mmol/L [facility] Carbon Dioxide 30(H) 22 - 29 mmol/L [facility] Anion Gap 13 12 - 20 [facility] Urea Nitrogen (BUN) 13 9 - 16 mg/dL [facility] Creatinine, Serum 0.94 0.5 - 1.4 mg/dL [facility] Estimated Glomerular Filt Rate >60 [facility] Comment:Chronic Kidney Disea se: Estimated GFR < 60 mL/min/[id number] Kidney Disease: Estimated GFR < 15 mL/min/1.73m2 Glucose 84 60 - 115 mg/dL [facility] Calcium 9.9 8.4 - 10.2 mg/dL [facility] Blood Venous blood specimen / Unknown 07/04/2025 3:11 PM EDT 07/04/2025 4:04 PM EDT Missy John MD LAB BLOOD ORDERABLES Final Resul t Performing Organization Address City/[facility] Co de Phone Number [facility] [address] [place] [phone] * (ABNORMAL) Hemoglobin A1c (07/04/2025 3:11 PM EDT) Hemoglobin A1c 6.1(H) <6.0 % [facility] Comment:Hemoglobin A1C Refer ence Range Adults: 4.8 - 6.0 % Non diabetic: < 6.0 % Goal: < 7.0 %Additional Action Suggested: > 8.0 %Note: Hemoglobin A1c results are invalid for patients with abnormal amounts of HbF. Blood transfusions may impact the HbA1c concentration in the patient sample. Estimated Average Glucose 128 mg/dL [facility] Comment:eAG = Estimated ave rage glucose which is %A1C expressed asaverage glucose, using the formula of the [id number]-[id number] Glucose study (ADAG), Diabetes Care, Vol.31,#8,Apr. 2007 Blood Venous blood specimen / Unknown 07/04/2025 3:11 PM EDT 07/04/2025 4:09 PM EDT Missy John MD LAB BLOOD ORDERABLES Final Resul t Performing Organization Address [facility] Co de Phone Number [facility] [address] [place] [phone] * (ABNORMAL) Lipid Panel with Reflex to Direct LDL (07/04/2025 3:11 PM EDT) Triglycerides 383(H) <150 mg/dL [facility] Comment:Slight Lipemia.Bessy able Triglyceride: less than 150 mg/dLBorderline High Triglyceride 150-199 mg/dLHigh Triglyceride: 200-499 mg/dLVery High Triglyceride: greater than or equal to 5OO mg/dL Cholesterol 207(H) <200 mg/dL [facility] Comment:Desirable Cholestero l: less than 200 mg/dLBorderline High Cholesterol: 200-239 mg/dLHigh Cholesterol: greater than 239 mg/dL LDL Cholesterol Calculated 83 <100 mg/dL [facility] Comment:Desirable LDL: less than 100 mg/dLNear Optimal/Above Optimal LDL: 110- 129 mg/dLBorderline High LDL: 130-159 mg/dLHigh LDL: 160-189 mg/dLVery High LDL: greater than or equal to 190 mg/dL HDL Cholesterol 48 >40 mg/dL [facility] Comment:Desirable HDL: great er than 40 mg/dL Note: This HDL assay may give artificially low results in patients with liver disease. Blood 07/04/2025 3:11 PM EDT 07/04/2025 4:04 PM EDT us Missy John MD LAB BLOOD ORDERABLES Final Resul t Performing Organization Address City/State/[facility] Co de Phone Number [facility] [address] [place] [phone] documented in this encounter Visit Diagnoses Diagnosis Routine general medical examination at a health care facility- Primary Screening for lipid disorders Screening for diabetes mellitus Elevated blood pressure reading Elevated blood pressure reading without diagnosis of hypertension documented in this encounter Additional Health Concerns Assessment Noted Time PHQ-9 Depression Total Score: 0 07/04/20 25 1:58 PM EDT documented as of this encounter Care Teams Grease Refiner Operator Relationship Specialty Start Date End Date Telma Swift MD [address] [place] [phone] PCP - General Family Medicine 09/21/18 documented as of this encounter
[2025-07-04 16:45] LABS: Anion Gap 13 (12-20); Blood Urea Nitrogen 13 mg/dL (9-16); Calcium 9.9 mg/dL (8.4-10.2); Carbon Dioxide 30 mmol/L (22-29); Chloride 104 mmol/L (96-108); Cholesterol 207 mg/dL (<200); Estimated Glomerular Filt Rate > 60; HDL Cholesterol 48 mg/dL (>40); Potassium 4.1 mmol/L (3.3-5.1); Sodium 143 mmol/L (135-145); Triglycerides 383 mg/dL (<150)
[2025-07-04 17:10] LABS: Reflex LDLD? No
--- OUTSIDE RECORDS SUMMARY | 2025-07-04 17:58 | XMS_ITS | Clinical Summary ---
Author Organization [employer] Address [address] [facility] [address] [place] [address] Care Team Providers Care Hammersmith Helper Name Role Phone Telma Swift MD Primary Care Provider + Allergies No known active allergies Medications Blood Pressure Monitoring (Blood Pressure Cuff) misc Use daily as prescribed 1 each Active Active Problems Problem Noted Date Diagnosed Date Chronic left shoulder pain 06/30/2024 Assessment & Plan (06/30/2024 1:55 PM EDT): Asymptomatic now Continue tylenol prn pain, recons. if sxs do not improve Encounter for preventive health examination 05/23 Assessment & Plan (06/30/2024 1:59 PM EDT): Discussed with patient re increase fresh fruit and vegetable intake. Counseled re moderate exercise as tolerated, up to 20min/d Patient feels safe at home. Eye exam: Due this year, patient will make appt at an Eye clinic close to home. CRC screen: I will order cologuard (couldn't afford colonoscopy) I told him to fu with Insurance re copayment and coverage once he receives the referral. Lipids/FBS: Overdue, TBO Vaccinations: Agreed to tdap, declined Influenza or Covid booster, advised to get them at nearest pharmacy. I will order hepatitis profile. Dental visit: UTD, next one due next mo, he's to make an appt (info re dental clinics on the area was given today) Assessment & Plan (06/17/2023 4:00 PM EDT): Discussed with patient re increase fresh fruit and vegetable intake. Counseled re moderate exercise as tolerated, up to 20min/d Patient feels safe at home. Eye exam: UTD, patient will bring infor from most recent eye exam office so we can obtain records. CRC screen: Agreed to be referred to colonoscopy. I told him to fu with Insurance re copayment and coverage once he receives the referral. Lipids/FBS: TBO Vaccinations: Agreed to td, declined Influenza or Covid booster. MMR and Varicella are uptdate, I will order hepatitis profile. Dental visit: NMD, I told him to fu with dentist re broken crown. Encounter for screening colonoscopy 06/17/2023 Assessment & Plan (06/30/2024 1:56 PM EDT): Didn't fu with GI last year due to large copayment/deductible. Will order colo guard, advised to check coverage with insurance. Elevated blood pressure reading 06/17/2023 Assessment & Plan (06/30/2024 1:53 PM EDT): Most likely essential HTN, will oder labs and fu in 1m Counseled re low salt diet/increase moderate physical activity. Check home BP BIW and prn CP/DUENAS/BRENNAN Non smoking patient. Assessment & Plan (06/17/2023 4:03 PM EDT): Repeated is 130/90. Counseled re low salt diet/increase moderate physical activity. Check home BP BIW and prn CP/DUENAS/BRENNAN Non smoking patient. FU in 3m w labs Vertigo 06/16/2023 Encounters Date Type Department Care Team Description 07/04/2025 1:45 PM EDT Office Visit [facility] [address] [place] [address] Missy John MD Routine general medical examination at a health care facility (Primary Dx); Screening for lipid disorders; Screening for diabetes mellitus; Elevated blood pressure reading 07/04/2025 Results Follow-Up [facility] [address] [place] [address] Missy John MD Lipid Panel with Reflex to Direct LDL, Hemoglobin A1c, Basic Metabolic Panel 07/04/2025 Travel 07/03/2025 Travel 07/03/2025 Telephone [facility] [address] [place] [address] Missy John MD chart prep 06/27/2025 Patient Outreach [facility] [address] [place] [address] Telma Swift MD Pre-visit Planning (Pre-visit planning - LVM ) from Last 3 Months Immunizations Immunization Administration Dates Next Due Tdap 06/30/2024,12/01/2012 Social History Tobacco Use Types Packs/Day Years [...] not to disclose 2021 10:31 AM EDT Last Filed Vital Signs Vital Sign Reading [...] Mass Index 27.11 07/04/2025 2:19 PM EDT Plan of Treatment Health Maintenance Due Date Last Done Comments CT Colonography 1971 Colonoscopy 1971 Colorectal Cancer Screening 1971 FIT DNA/Cologuard 1971 FIT 1971 FOBT 1971 HIV Screening 1971 Sigmoidoscopy 1971 Hepatitis B Vaccines (1 of 3 - 19+ 3-dose series) 12/28/1990 Pneumococcal Vaccine: 50+ Years (1 of 1 - PCV) 12/28/2021 Zoster Vaccines (1 of 2) 12/28/2021 COVID-19 Vaccine (3 - 2024-2 6 season) 2025 08/08/2021, 07/11/2021 Influenza Vaccine (#1) 2025 Alcohol/Substance Use Screening 07/04/2026 07/04/2025 Depression Screening 07/04/2026 07/04/2025, 07/04/2025 Diabetes: Hemoglobin A1C 07/04/202607/04/2 025, 06/30/2024, 06/26/2021 Disability Screening 07/04/2026 07/04/2025 SDOH Screening 07/04/2026 07/04/2025 Tobacco Screening 07/04/2026 07/04/2025 Lipid Panel 07/04/2030 07/04/2025, 06/30/2024 DTaP/Tdap/Td Vaccines (3 - T d or Tdap) 06/30/2034 06/30/2024, 12/01/2012 RSV Patients and Patients Aged 60 years or older (1 - 1-dose 75+ series) 12/28/2046 Hepatitis C Screening Completed 06/30/2024 HIB Vaccines Aged Out No longer eligi ble based on patient's age to complete this topic HPV Vaccines Aged Out No longer eligi ble based on patient's age to complete this topic Hepatitis A Vaccines Aged Out No long er eligible based on patient's age to complete this topic IPV Vaccines Aged Out No longer eligi ble based on patient's age to complete this topic Meningococcal B Vaccine Aged Out No l onger eligible based on patient's age to complete this topic Meningococcal Vaccine Aged Out No swapnil inessa eligible based on patient's age to complete this topic RSV under 20 months Aged Out No longe r eligible based on patient's age to complete this topic Rotavirus Vaccines Aged Out No longer eligible based on patient's age to complete this topic Procedures Procedure Name Priority Date/Time Associated Diagnosis Comments BASIC METABOLIC PANEL Routine 07/04/2025 3:11 PM EDT Elevated blood pressure reading HEMOGLOBIN A1C Routine 07/04/2025 3:11 PM EDT Screening for diabetes mellitus LIPID PANEL WITH REFLEX TO DIRECT LDL Routine 07/04/2025 3:11 PM EDT Screening for lipid disorders HEPATITIS PANEL, GENERAL Routine 06/30/2024 10:45 AM EDT Encounter for preventive health examination from Last 3 Months or Most Recently Relevant to Health Maintenance Results * (ABNORMAL) Lipid Panel with Reflex to Direct LDL (07/04/2025 3:11 PM EDT) Triglycerides 383(H) <150 mg/dL [facility] Comment:Slight Lipemia.Bessy able Triglyceride: less than 150 mg/dLBorderline High Triglyceride 150-199 mg/dLHigh Triglyceride: 200-499 mg/dLVery High Triglyceride: greater than or equal to 5OO mg/dL Cholesterol 207(H) <200 mg/dL [facility] Comment:Desirable Cholestero l: less than 200 mg/dLBorderline High Cholesterol: 200-239 mg/dLHigh Cholesterol: greater than 239 mg/dL LDL Cholesterol Calculated 83 <100 mg/dL [facility] Comment:Desirable LDL: less than 100 mg/dLNear Optimal/Above Optimal LDL: 110- 129 mg/dLBorderline High LDL: 130-159 mg/dLHigh LDL: 160-189 mg/dLVery High LDL: greater than or equal to 190 mg/dL HDL Cholesterol 48 >40 mg/dL [facility] Comment:Desirable HDL: great er than 40 mg/dL Note: This HDL assay may give artificially low results in patients with liver disease. Blood 07/04/2025 3:11 PM EDT 07/04/2025 4:04 PM EDT us Missy John MD LAB BLOOD ORDERABLES Final Resul t [facility] [address] [place] [phone] * (ABNORMAL) Hemoglobin A1c (07/04/2025 3:11 PM EDT) Hemoglobin A1c 6.1(H) <6.0 % [facility] Comment:Hemoglobin A1C Refer ence Range Adults: 4.8 - 6.0 % Non diabetic: < 6.0 % Goal: < 7.0 %Additional Action Suggested: > 8.0 %Note: Hemoglobin A1c results are invalid for patients with abnormal amounts of HbF. Blood transfusions may impact the HbA1c concentration in the patient sample. Estimated Average Glucose 128 mg/dL [facility] Comment:eAG = Estimated ave rage glucose which is %A1C expressed asaverage glucose, using the formula of the T9V-XadvfvrOgcumkr Glucose study (ADAG), Diabetes Care, Vol.31,#8,Apr. 2007 Blood Venous blood specimen / Unknown 07/04/2025 3:11 PM EDT 07/04/2025 4:09 PM EDT us Missy John MD LAB BLOOD ORDERABLES Final Resul t Performing Organization Address [facility] de Phone Number [facility] [address] [place] [address] [phone] * (ABNORMAL) Basic Metabolic Panel (07/04/2025 3:11 PM EDT) Pathologist [facility] Sodium 143 135 - 145 mmol/L [facility] Potassium 4.1 3.3 - 5.1 mmol/L [facility] Chloride 104 96 - 108 mmol/L [facility] Carbon Dioxide 30(H) 22 - 29 mmol/L [facility] Anion Gap 13 12 - 20 [facility] Urea Nitrogen (BUN) 13 9 - 16 mg/dL [facility] Creatinine, Serum 0.94 0.5 - 1.4 mg/dL [facility] Estimated Glomerular Filt Rate >60 [facility] Comment:Chronic Kidney Disea se: Estimated GFR < 60 mL/min/[id number] Kidney Disease: Estimated GFR < 15 mL/min/1.73m2 Glucose 84 60 - 115 mg/dL [facility] Calcium 9.9 8.4 - 10.2 mg/dL [facility] Blood Venous blood specimen / Unknown 07/04/2025 3:11 PM EDT 07/04/2025 4:04 PM EDT Missy John MD LAB BLOOD ORDERABLES Final Resul t Performing Organization Address [facility] Co de Phone Number [facility] [address] [place] [address] [phone] * Hepatitis Panel, General (06/30/2024 10:45 AM EDT) Pathologist [facility] Hepatitis A IgM Nonreactive Nonreactive [facility] Comment:IgM antibodies to DUENAS V not detected; does not exclude earlyacute or recovered HAV infection. ~Hepatitis B Surface Antibody NONREACTIVE Nonreactive [facility] Comment:Nonreactive: < 8.00 mIU/mL Hepatitis B Core Antibody Nonreactive Nonreactive [facility] Hepatitis C Antibody Nonreactive Nonreactive [facility] Comment:Antibodies to HCV no t detected; does not exclude early acuteHCV infection. Hepatitis B Surface Ag Negative Negative [facility] Blood 06/30/2024 10:4 5 AM EDT 06/30/2024 11:20 AM EDT Telma Swift MD LAB BLOOD ORDERABLES Fin al Result [facility] [address] [place] [phone] [phone] from Last 3 Months or Most Recently Relevant to Health Maintenance Insurance [employer] Care Teams Hammersmith Helper Relationship Specialty Start Date End Date Telma Swift MD [address] [place] [phone] PCP - General Family Medicine 09/21/18
--- OUTSIDE RECORDS SUMMARY | 2025-07-04 17:58 | XMS_ITS | Encounter Summary ---
Author Organization [employer] Address [address] [facility] [address] [place] [address] Care Team Providers Care Transport Manager Name Role Phone Telma Swift MD Primary Care Provider + Encounter Details Date Type Department Care Team (Latest Contact Info) Description 07/04/2025 Travel Social History Tobacco Use Types Packs/Day Years Used Date Smoking Tobacco: Never Smokeless Tobacco: Never Alcohol Use Standard Drinks/Week Comments Yes 0 [...] AM EDT documented as of this encounter Functional Status * Over the [...] PM EDT Jose Rafael Bush MA * Poor appetite or overeating Answer Date of Assessment Author Not at all 07/04/2025 1:58 PM PAOLOT Jose Rafael Bush MA * Feeling bad [...] PM EDT Jose Rafael Bush MA * Moving or speaking so slowly that other people could have noticed? Or the opposite - being so fidgety or restless that you have been moving around a lot more than usual. Answer Date of Assessment Author Not at all 07/04/2025 1:58 PM EDT Jose Rafael Bush MA * Thoughts that you would be better off or hurting yourself in some way Answer Date of Assessment Author Not at all 07/04/2025 1:58 PM EDT Jose Rafael Bush MA * Patient Health Questionnaire-9 Score Answer Date of Assessment Author 0 07/04/2025 1:58 PM EDT Jose Rafael Bush MA * Over the last 2 weeks, how often have you been bothered by any of the following problems? Question Answer Date of Assessment Author Feeling nervous, anxious, or on edge 0 07/04/2025 1:59 PM EDT Taylro Bush MA Not being able to stop or co ntrol worrying 0 07/04/2025 1:59 PM EDT Taylor Bush MA Worrying too much about diff erent [...] on file documented as of this encounter Visit Diagnoses Not on filedocumented in this encounter Additional Health Concerns Assessment Noted Time PHQ-9 Depression Total Score: 0 07/04/20 25 1:58 PM EDT documented as of this encounter Care Teams Transport Manager Relationship Specialty Start Date End Date Telma Swift MD [address] [place] [address] PCP - General Family Medicine 09/21/18 documented as of this encounter
--- OUTSIDE RECORDS SUMMARY | 2025-07-04 17:58 | XMS_ITS | Encounter Summary ---
Author Organization [employer] Address [address] [facility] [address] [place] [address] Care Team Providers Care Parking Control Officer Name Role Phone Telma Swift MD Primary Care Provider + Encounter Details Date Type Department Care Team (Latest Contact Info) Description 07/03/2025 Travel Social History Tobacco Use Types Packs/Day [...] AM EDT documented as of this encounter Plan of Treatment Not on file documented as of this encounter Visit Diagnoses Not on filedocumented in this encounter Care Teams Parking Control Officer Relationship Specialty Start Date End Date Telma Swift MD [address] [place] [phone] PCP - General Family Medicine 09/21/18 documented as of this encounter
--- OUTSIDE RECORDS SUMMARY | 2025-07-04 17:58 | XMS_ITS | Encounter Summary ---
Author Organization [employer] Address [address] [facility] 7t [place] [address] Care Team Providers Care Grinding Room Supervisor Name Role Phone Telma Swift MD Primary Care Provider + Reason for Visit * Reason Onset Date Comments chart prep 07/03/2025 Encounter Details Date Type Department Care Team (Late st Contact Info) Description 07/03/2025 Telephone [facility] [address] [place], [place] [phone] Missy John MD [address] [place], [place] [phone] chart prep Social History Tobacco Use Types Packs/Day Years [...] AM EDT documented as of this encounter Miscellaneous Notes * Telephone Encounter - Emmanuelle Cameron MA - 07/03/2025 9:34 AM EDT Chart Prep Labs: not applicable Images: not applicable Referrals: not applicable Vaccines due: Covid, Flu, PCV20, Hep B, and Zoster Screenings: colonoscopy and HIV screening Overdue care gaps: SBIRT, SDOH, PHQ-9, PIA-7, Oral health screening, and Disability screen documented in this encounter Plan of Treatment Not on file documented as of this encounter Visit Diagnoses Not on filedocumented in this encounter Care Teams Grinding Room Supervisor Relationship Specialty Start Date End Date Telma Swift MD [address] [place] [phone] PCP - General Family Medicine 09/21/18 documented as of this encounter
--- OUTSIDE RECORDS SUMMARY | 2025-07-04 17:58 | XMS_ITS | Encounter Summary ---
Author Organization [employer] Address [address] [facility] 7[address] [place] [address] Care Team Providers Care Dressmaker Or Tailor Name Role Phone Telma Swift MD Primary Care Provider + Encounter Details Date Type Department Care Team ([facility] st Contact Info) Description 07/04/2025 Results Follow-Up [facility] [address] [place], [place] [phone] Missy John MD [address] [place] [address] Lipid Panel with Reflex to Direct LDL, Hemoglobin A1c, Basic Metabolic Panel Social History Tobacco Use Types Packs/Day Years [...] EDT Jose Rafael Bush MA * Feeling tired [...] EDT Jose Rafael Bush MA * Trouble concentrating [...] at all 07/04/2025 1:58 PM EDT Jose aRfael Bush MA * Thoughts that you would [...] on edge 0 07/04/2025 1:59 PM EDT Taylor Bush MA Not being able to stop [...] documented as of this encounter Care Teams Dressmaker Or Tailor Relationship Specialty Start Date End Date Telma Swift MD [address] [place] [phone] PCP - General Family Medicine 09/21/18 documented as of this encounter
== END 2025-07-04 15:05 | disposition home or self-care (01) ==
LOC: HO.HHCL 15:04
PROVIDERS: PCP Internal Medicine; Visit Provider Family Medicine
DX: Z13.1 Encounter for screening for diabetes mellitus (principal); Z13.220 Encounter for screening for lipoid disorders; Z13.6 Encounter for screening for cardiovascular disorders; R03.0 Elevated blood-pressure reading, without diagnosis of hypertension
CPT/HCPCS: 36415; 80048; 80061; 83036